=== PATIENT | male | born 1950 | race Caucasian/White ===

== ENCOUNTER 2018-04-02 12:10 | Inpatient (IN) | payer MEDICARE, OTHER ==
[2018-04-02 13:43] LABS: HEMATOCRIT 22.8 % (39.0-53.0); HEMOGLOBIN 7.3 g/dL (13.0-17.5); MEAN CORPUSCULAR HEMOGLOBIN 32 pg (25-35); MEAN CORPUSCULAR HGB CONC 32 g/dL (31-37); MEAN CORPUSCULAR VOLUME 98 fL (79-100); PLATELET COUNT 213 x10^3/uL (140-400); RED BLOOD COUNT 2.32 x10^6/uL (4.30-5.70); RED CELL DISTRIBUTION WIDTH 20.6 % (11.5-14.5); WHITE BLOOD COUNT 11.5 x10^3/uL (4.0-11.0)
[2018-04-02] MEDS: IV NORMAL SALINE 1000ML BAG 1,000 ML IV (13:45)
[2018-04-02 13:49] LABS: ANION GAP 7 (6-14); BLOOD UREA NITROGEN 51 mg/dL (8-26); BUN/CREATININE RATIO 12 (6-20); CALCIUM 9.8 mg/dL (8.5-10.1); CARBON DIOXIDE 30 mmol/L (21-32); CHLORIDE 101 mmol/L (98-107); CREATININE 4.4 mg/dL (0.7-1.3); GFR 13.6; GLUCOSE 113 mg/dL (70-99); POTASSIUM 5.4 mmol/L (3.5-5.1); SODIUM 138 mmol/L (136-145)
[2018-04-02 13:53] LABS: FIBRINOGEN 687 mg/dL (200-440)
[2018-04-02 13:54] LABS: INR 1.2 (0.8-1.1); PARTIAL THROMBOPLASTIN TIME 38 SEC (24-38); PROTHROMBIN TIME PATIENT 14.2 SEC (11.7-14.0)
[2018-04-02 13:55] LABS: ALBUMIN 2.1 g/dL (3.4-5.0); ALBUMIN/GLOBULIN RATIO 0.4 (1.0-1.7); ALK PHOS 671 U/L (46-116); ALT (SGPT) 39 U/L (16-63); AST (SGOT) 32 U/L (15-37); TOTAL BILIRUBIN 0.9 mg/dL (0.2-1.0); TOTAL PROTEIN 7.1 g/dL (6.4-8.2)
[2018-04-02 14:04] LABS: PLATELET COUNT 213 x10^3/uL (140-400)
[2018-04-02 14:04] LABS: D-DIMER 2.79 ug/mlFEU (0.00-0.50)
[2018-04-02] MEDS: PANTOPRAZOLE IV PUSH 40 MG VIAL. IVP (16:53)
[2018-04-02 17:30] LABS: HEMATOCRIT 21.5 % (39.0-53.0); MEAN CORPUSCULAR HEMOGLOBIN 32 pg (25-35); MEAN CORPUSCULAR HGB CONC 32 g/dL (31-37); MEAN CORPUSCULAR VOLUME 98 fL (79-100); PLATELET COUNT 219 x10^3/uL (140-400); RED BLOOD COUNT 2.19 x10^6/uL (4.30-5.70); RED CELL DISTRIBUTION WIDTH 20.7 % (11.5-14.5); WHITE BLOOD COUNT 11.6 x10^3/uL (4.0-11.0)
[2018-04-02] MEDS ORDERED: PANTOPRAZOLE IV PUSH 40 MG VIAL. IVP (17:45)
[2018-04-02] MEDS ORDERED: ACETAMINOPHEN 650 MG SUPP.RECT. PR (17:45)
[2018-04-02] MEDS ORDERED: ONDANSETRON PF 4 MG/2 ML VIAL. IV (17:45)
[2018-04-02] MEDS ORDERED: NON FORMULARY ITEM (Albuterol Sulfate (Albuterol Sulfate Conc Neb Soln) 1 VIAL) NEB (18:00)
[2018-04-02] MEDS: METOCLOPRAMIDE HCL 10 MG/2 ML VIAL. IV (18:00)
[2018-04-02 18:22] LABS: IMMEDIATE SPIN CROSSMATCH 1 2
[2018-04-02] MEDS: METOPROLOL TARTRATE 5 MG/5 ML VIAL. IVP ×2 (18:30→23:52)
[2018-04-02] MEDS: ALBUTEROL SULFATE 2.5 MG/3 ML NEBU. NEB (19:55)
[2018-04-02] MEDS: fentaNYL PF VIAL 100 MCG/2 ML VIAL IV (20:08)
[2018-04-02] MEDS: FAMOTIDINE 20 MG/2 ML VIAL IVP (20:40)
[2018-04-02] MEDS: TAZOBACTAM IV (21:26)
[2018-04-02] MEDS: NORMAL SALINE IV (21:26)
[2018-04-02] MEDS: CEFTOLOZANE IV (21:26)
[2018-04-03 01:22] LABS: HEMATOCRIT 23.5 % (39.0-53.0); HEMOGLOBIN 7.8 g/dL (13.0-17.5); MEAN CORPUSCULAR HEMOGLOBIN 32 pg (25-35); MEAN CORPUSCULAR HGB CONC 33 g/dL (31-37); MEAN CORPUSCULAR VOLUME 98 fL (79-100); PLATELET COUNT 229 x10^3/uL (140-400); RED CELL DISTRIBUTION WIDTH 19.5 % (11.5-14.5); WHITE BLOOD COUNT 10.4 x10^3/uL (4.0-11.0)
[2018-04-03 05:38] LABS: ADD MAN DIFF? NO
[2018-04-03] MEDS: IV NORMAL SALINE 1000ML BAG 1,000 ML IV ×3 (05:51→20:15)
[2018-04-03] MEDS: METOCLOPRAMIDE HCL 10 MG/2 ML VIAL. IV ×2 (05:51→16:42)
[2018-04-03] MEDS: METOPROLOL TARTRATE 5 MG/5 ML VIAL. IVP ×3 (05:51→16:43)
[2018-04-03] MEDS: TAZOBACTAM IV ×3 (05:52→22:03)
[2018-04-03] MEDS: NORMAL SALINE IV ×3 (05:52→22:03)
[2018-04-03] MEDS: CEFTOLOZANE IV ×3 (05:52→22:03)
[2018-04-03 05:56] LABS: ALBUMIN 2.1 g/dL (3.4-5.0); ALBUMIN/GLOBULIN RATIO 0.4 (1.0-1.7); ALK PHOS 582 U/L (46-116); ALT (SGPT) 24 U/L (16-63); ANION GAP 11 (6-14); AST (SGOT) 26 U/L (15-37); BLOOD UREA NITROGEN 55 mg/dL (8-26); BUN/CREATININE RATIO 11 (6-20); CALCIUM 9.7 mg/dL (8.5-10.1); CARBON DIOXIDE 26 mmol/L (21-32); CHLORIDE 101 mmol/L (98-107); GFR 11.7; GLUCOSE 88 mg/dL (70-99); PHOSPHORUS 4.4 mg/dL (2.6-4.7); POTASSIUM 5.5 mmol/L (3.5-5.1); SODIUM 138 mmol/L (136-145)
[2018-04-03] MEDS ORDERED: TAZOBACTAM IV (06:00)
[2018-04-03] MEDS ORDERED: NORMAL SALINE IV (06:00)
[2018-04-03] MEDS ORDERED: CEFTOLOZANE IV (06:00)
[2018-04-03 06:04] LABS: BASO # 0.1 x10^3/uL (0.0-0.2); BASO % 1 % (0-3); EOS # 0.2 x10^3/uL (0.0-0.7); EOS % 2 % (0-3); HEMOGLOBIN 7.9 g/dL (13.0-17.5); LYMPH # 0.8 x10^3/uL (1.0-4.8); LYMPH % 8 % (24-48); MEAN CORPUSCULAR HEMOGLOBIN 32 pg (25-35); MEAN CORPUSCULAR HGB CONC 33 g/dL (31-37); MEAN CORPUSCULAR VOLUME 98 fL (79-100); MONO # 1.2 x10^3/uL (0.0-1.1); MONO % 12 % (0-9); NEUT # 8.3 x10^3uL (1.8-7.7); NEUT % 78 % (31-73); PLATELET COUNT 231 x10^3/uL (140-400); RED BLOOD COUNT 2.46 x10^6/uL (4.30-5.70); RED CELL DISTRIBUTION WIDTH 19.8 % (11.5-14.5); WHITE BLOOD COUNT 10.7 x10^3/uL (4.0-11.0)
[2018-04-03] MEDS: PANTOPRAZOLE IV PUSH 40 MG VIAL. IVP (07:30)
[2018-04-03] MEDS: ALBUTEROL SULFATE 2.5 MG/3 ML NEBU. NEB ×4 (07:49→19:24)
[2018-04-03 10:22] LABS: % SAT IRON 18 % (15-34); IRON,SERUM 33 ug/dL (65-175)
[2018-04-03] MEDS ORDERED: IV NORMAL SALINE 1000ML BAG 1,000 ML IV ×2 (10:32)
[2018-04-03 10:35] LABS: FERRITIN 315 ng/mL (26-388)
[2018-04-03] MEDS ORDERED: DIALYSIS PATIENT. MC (10:45)
[2018-04-03] MEDS ORDERED: diphenhydrAMINE 50 MG/ML VIAL IV ×2 (10:45)
[2018-04-03] MEDS ORDERED: 0.9 % SODIUM CHLORIDE 10 ML DISP.SYRIN. IV ×2 (10:45)
[2018-04-03 11:01] LABS: HEPATITIS B SURFACE AG Nonreactive (Nonreactive)
[2018-04-03 11:20] LABS: HEPATITIS B SURFACE AB Reactive
[2018-04-03 17:24] LABS: HEMATOCRIT 24.1 % (39.0-53.0); HEMOGLOBIN 7.9 g/dL (13.0-17.5); MEAN CORPUSCULAR HEMOGLOBIN 32 pg (25-35); MEAN CORPUSCULAR HGB CONC 33 g/dL (31-37); MEAN CORPUSCULAR VOLUME 97 fL (79-100); PLATELET COUNT 244 x10^3/uL (140-400); RED BLOOD COUNT 2.49 x10^6/uL (4.30-5.70); RED CELL DISTRIBUTION WIDTH 19.4 % (11.5-14.5); WHITE BLOOD COUNT 11.1 x10^3/uL (4.0-11.0)
[2018-04-04] MEDS: METOPROLOL TARTRATE 5 MG/5 ML VIAL. IVP ×3 (00:30→11:45)
[2018-04-04] MEDS: IV NORMAL SALINE 1000ML BAG 1,000 ML IV (04:15)
[2018-04-04 05:37] LABS: ADD MAN DIFF? NO
[2018-04-04 05:40] LABS: BASO # 0.1 x10^3/uL (0.0-0.2); BASO % 1 % (0-3); EOS # 0.2 x10^3/uL (0.0-0.7); EOS % 2 % (0-3); HEMATOCRIT 24.2 % (39.0-53.0); LYMPH # 0.8 x10^3/uL (1.0-4.8); LYMPH % 8 % (24-48); MEAN CORPUSCULAR HEMOGLOBIN 32 pg (25-35); MEAN CORPUSCULAR HGB CONC 33 g/dL (31-37); MEAN CORPUSCULAR VOLUME 98 fL (79-100); MONO # 1.2 x10^3/uL (0.0-1.1); MONO % 12 % (0-9); NEUT % 78 % (31-73); PLATELET COUNT 268 x10^3/uL (140-400); RED BLOOD COUNT 2.48 x10^6/uL (4.30-5.70); RED CELL DISTRIBUTION WIDTH 19.4 % (11.5-14.5); WHITE BLOOD COUNT 10.2 x10^3/uL (4.0-11.0)
[2018-04-04] MEDS: METOCLOPRAMIDE HCL 10 MG/2 ML VIAL. IV (05:50)
[2018-04-04 05:57] LABS: ALBUMIN 2.1 g/dL (3.4-5.0); ALBUMIN/GLOBULIN RATIO 0.4 (1.0-1.7); ALK PHOS 532 U/L (46-116); ALT (SGPT) 28 U/L (16-63); ANION GAP 12 (6-14); AST (SGOT) 24 U/L (15-37); BLOOD UREA NITROGEN 32 mg/dL (8-26); BUN/CREATININE RATIO 9 (6-20); CALCIUM 9.7 mg/dL (8.5-10.1); CARBON DIOXIDE 26 mmol/L (21-32); CHLORIDE 100 mmol/L (98-107); CREATININE 3.5 mg/dL (0.7-1.3); GFR 17.7; GLUCOSE 81 mg/dL (70-99); MAGNESIUM 2.1 mg/dL (1.8-2.4); POTASSIUM 4.4 mmol/L (3.5-5.1); SODIUM 138 mmol/L (136-145); TOTAL PROTEIN 7.3 g/dL (6.4-8.2)
[2018-04-04] MEDS: NORMAL SALINE IV ×2 (06:29→14:12)
[2018-04-04] MEDS: TAZOBACTAM IV ×2 (06:29→14:12)
[2018-04-04] MEDS: CEFTOLOZANE IV ×2 (06:29→14:12)
[2018-04-04] MEDS: PANTOPRAZOLE IV PUSH 40 MG VIAL. IVP (07:44)
[2018-04-04] MEDS: ALBUTEROL SULFATE 2.5 MG/3 ML NEBU. NEB ×2 (09:10→11:21)
[2018-04-04 12:08] LABS: HEMATOCRIT 24.8 % (39.0-53.0); HEMOGLOBIN 8.1 g/dL (13.0-17.5); MEAN CORPUSCULAR HEMOGLOBIN 32 pg (25-35); MEAN CORPUSCULAR HGB CONC 33 g/dL (31-37); MEAN CORPUSCULAR VOLUME 98 fL (79-100); PLATELET COUNT 289 x10^3/uL (140-400); RED BLOOD COUNT 2.53 x10^6/uL (4.30-5.70); RED CELL DISTRIBUTION WIDTH 19.5 % (11.5-14.5); WHITE BLOOD COUNT 11.1 x10^3/uL (4.0-11.0)
[2018-04-04 12:35] LABS: BASE EXCESS COOX -3 mmol/L (-3-3); CARBON MONOXIDE 1.6 % (0.0-1.9); HCO3 COOX 21 mmol/L (21-28); METHEMOGLOBIN 0.4 % (0.0-1.9); OXYHEMOGLOBIN 86.1 %; PO2 COOX 58 mmHg (65-108); SAT O2 COOX 88 % (92-99); TOTAL HEMOGLOBIN 8.8 g/dL
[2018-04-04 12:38] LABS: FIO2 COOX 35; PCO2 COOX 33 mmHg (35-46); PH COOX 7.42 (7.35-7.45)
[2018-04-04] MEDS ORDERED: MIDAZOLAM HCL/PF 5 MG/5 ML VIAL. (13:38)
[2018-04-04] MEDS: MIDAZOLAM 100mg/100ml NS BAG 100 ML IV (13:55)
[2018-04-04 13:59] LABS: BASE EXCESS ABG -3 mmol/L (-3-3); HCO3 ABG 22 mmol/L (21-28); PCO2 ABG 39 mmHg (35-46); PH ABG 7.37 (7.35-7.45); PO2 ABG 310 mmHg (65-108); SAT O2 ABG 100 % (92-99)
[2018-04-04 14:03] LABS: BASO # 0.1 x10^3/uL (0.0-0.2); BASO % 1 % (0-3); EOS # 0.1 x10^3/uL (0.0-0.7); EOS % 1 % (0-3); HEMOGLOBIN 8.6 g/dL (13.0-17.5); LYMPH # 1.9 x10^3/uL (1.0-4.8); LYMPH % 15 % (24-48); MEAN CORPUSCULAR HEMOGLOBIN 32 pg (25-35); MEAN CORPUSCULAR HGB CONC 32 g/dL (31-37); MEAN CORPUSCULAR VOLUME 101 fL (79-100); MONO # 1.3 x10^3/uL (0.0-1.1); MONO % 11 % (0-9); NEUT # 8.9 x10^3uL (1.8-7.7); NEUT % 72 % (31-73); PLATELET COUNT 276 x10^3/uL (140-400); RED BLOOD COUNT 2.68 x10^6/uL (4.30-5.70); RED CELL DISTRIBUTION WIDTH 20.8 % (11.5-14.5); WHITE BLOOD COUNT 12.3 x10^3/uL (4.0-11.0)
[2018-04-04 14:05] LABS: ADD MAN DIFF? YES
[2018-04-04 14:12] LABS: INR 1.3 (0.8-1.1); PARTIAL THROMBOPLASTIN TIME 36 SEC (24-38); PROTHROMBIN TIME PATIENT 15.7 SEC (11.7-14.0)
[2018-04-04] MEDS: MIDAZOLAM HCL/PF 5 MG/5 ML VIAL. IV (14:14)
[2018-04-04] MEDS: NOREPINEPHRIN 8MG/250ML PREMIX 250 ML IV (14:17)
[2018-04-04 14:18] LABS: ANION GAP 16 (6-14); BLOOD UREA NITROGEN 37 mg/dL (8-26); CALCIUM 9.7 mg/dL (8.5-10.1); CARBON DIOXIDE 24 mmol/L (21-32); CHLORIDE 101 mmol/L (98-107); GFR 15.1; GLUCOSE 102 mg/dL (70-99); POTASSIUM 4.7 mmol/L (3.5-5.1); SODIUM 141 mmol/L (136-145)
[2018-04-04 15:07] LABS: % EOS 1 % (0-5); % LYMPHS 13 % (24-48); % MONOS 11 % (0-10); % MYELOS 1 % (0-0); % SEGS 74 % (35-66); PLT ESTIMATE ADEQUATE (ADEQUATE)
[2018-04-04 15:08] LABS: ANISOCYTOSIS MOD
[2018-04-04 15:27] LABS: FIO2 ABG 100
[2018-04-04] MEDS ORDERED: LANSOPRAZOLE 30 MG TAB.RAP.DR FT (16:30)
== END 2018-04-04 15:20 | disposition short-term general hospital (02) | DRG 377 ==
LOC: 1 WEST ICU 12:10
PROC: 0BH17EZ Insertion of Endotracheal Airway into Trachea, Via Natural or Artificial Opening (ICD-10-PCS; principal; 2018-04-04)
PROC: 5A1935Z Respiratory Ventilation, Less than 24 Consecutive Hours (ICD-10-PCS; 2018-04-04)
PROC: 30233N1 Transfusion of Nonautologous Red Blood Cells into Peripheral Vein, Percutaneous Approach (ICD-10-PCS; 2018-04-04)
DX: K92.2 Gastrointestinal hemorrhage, unspecified (principal); J96.20 Acute and chronic respiratory failure, unspecified whether with hypoxia or hypercapnia; L89.93 Pressure ulcer of unspecified site, stage 3; G93.41 Metabolic encephalopathy; N18.6 End stage renal disease; E43 Unspecified severe protein-calorie malnutrition; I46.9 Cardiac arrest, cause unspecified; D62 Acute posthemorrhagic anemia; G72.81 Critical illness myopathy; I12.0 Hypertensive chronic kidney disease with stage 5 chronic kidney disease or end stage renal disease; I42.0 Dilated cardiomyopathy; Z68.27 Body mass index [BMI] 27.0-27.9, adult; E78.5 Hyperlipidemia, unspecified; F17.200 Nicotine dependence, unspecified, uncomplicated; G47.30 Sleep apnea, unspecified; J44.9 Chronic obstructive pulmonary disease, unspecified; Z87.01 Personal history of pneumonia (recurrent); K21.9 Gastro-esophageal reflux disease without esophagitis; T45.525A Adverse effect of antithrombotic drugs, initial encounter; Z80.9 Family history of malignant neoplasm, unspecified; Z86.73 Personal history of transient ischemic attack (TIA), and cerebral infarction without residual deficits; Z90.81 Acquired absence of spleen; Z99.2 Dependence on renal dialysis; F32.9 Major depressive disorder, single episode, unspecified; F41.9 Anxiety disorder, unspecified; G62.9 Polyneuropathy, unspecified; M10.9 Gout, unspecified; R04.0 Epistaxis; D72.829 Elevated white blood cell count, unspecified
CPT/HCPCS: 36415; 36600; 70450; 71045; 80048; 80053; 82728; 82805; 83540; 83550; 83735; 84100; 85007; 85025; 85027; 85049; 85379; 85384; 85610; 85730; 86706; 86850; 86900; 86901; 86920; 87340; 93971; 94002; 94640; 94760; C9113; J2060; J2250; J2765; J3010; J3490; J7030; J7613; P9016; S0028